=== PATIENT | male | born 1980 | race Caucasian/White ===

== ENCOUNTER → 2020-01-06 | Outpatient (CLI) | payer OTHER ==
[~2020-01-06] MED LIST: BACTRIM DS TAB1 EACH PO; IMITREX6 MG/0.5 M SQ; VIAGRA25 MG PO
== END ==
LOC: LAB 12:21
PROVIDERS: ATTEND Nurse Practitioner
DX: R50.9 Fever, unspecified (principal); M79.10 Myalgia, unspecified site; R51 Headache; Z20.828 Contact with and (suspected) exposure to other viral communicable diseases

== ENCOUNTER → 2020-06-30 | Outpatient (CLI) | payer OTHER | LOC: CAT 06-25 09:02 | PROVIDERS: ATTEND Neuromusculoskeletal Medicine & OMM | DX: Z13.6 Encounter for screening for cardiovascular disorders (principal); I25.10 Atherosclerotic heart disease of native coronary artery without angina pectoris; E78.00 Pure hypercholesterolemia, unspecified ==

== ENCOUNTER → 2021-02-22 | Outpatient (CLI) | payer OTHER | LOC: RAD 12:35 | PROVIDERS: ATTEND Nurse Practitioner | DX: M51.37 Other intervertebral disc degeneration, lumbosacral region (principal); M54.5 Low back pain; M48.07 Spinal stenosis, lumbosacral region ==

== ENCOUNTER 2021-06-23 16:09 | Emergency (ER) | payer OTHER ==
[~2021-06-23] VITALS: Ht 182.9 cm; Wt 104.3 kg
[2021-06-23 17:27] VITALS: BP 141/94
== END 2021-06-23 17:45 | disposition home or self-care (01) ==
LOC: ER 16:09
DX: M54.50 Low back pain, unspecified (principal); G43.909 Migraine, unspecified, not intractable, without status migrainosus; Z79.899 Other long term (current) drug therapy; Z88.1 Allergy status to other antibiotic agents; V49.3XXA Car occupant (driver) (passenger) injured in unspecified nontraffic accident, initial encounter; Y93.89 Activity, other specified; Y92.89 Other specified places as the place of occurrence of the external cause; Y99.8 Other external cause status

== ENCOUNTER → 2021-06-27 | Outpatient (CLI) | payer OTHER | LOC: RAD 16:13 | PROVIDERS: ATTEND Family Medicine | DX: M25.511 Pain in right shoulder (principal) ==